=== PATIENT | female | born 1935 | race Caucasian/White ===

== ENCOUNTER 2017-09-03 10:55 | Inpatient (IN) | payer MEDICARE, MEDICAID ==
[~2017-09-03] VITALS: Ht 165.1 cm; Wt 63.1 kg
[~2017-09-03 10:55] MED LIST: ALEN70TA55 OR; ASPI81CH43 GT; GABA-497 OR; INSLANTI SC; LEVO125T6 PO; LISI10TA6 PO; METF-370 OR; NIAC500T6 OR; OMEPRAZOLE; OXYC7.5T88 OR; OYST500T29 OR; TIZA4TAB3 OR
[2017-09-03 11:57] LABS: Basophils # (auto) 0.1 uL; Eosinophils # (auto) 0.1 uL; Eosinophils % (auto) 2.8 % (0.0-7.0); Hematocrit 48.4 % (36.0-46.0); Hemoglobin 16.6 g/dL (12.2-16.2); Lymphocytes # (auto) 1.5 uL; Lymphocytes % (auto) 28.8 % (10.0-50.0); Mean Corpuscular Hemoglobin 30.9 pg (28.0-32.0); Mean Corpuscular Hgb Conc. 34.2 g/dL (32.0-36.0); Mean Corpuscular Volume 90.2 fL (80.0-100.0); Monocytes # (auto) 0.4 uL; Monocytes % (auto) 6.6 % (0.0-12.0); Neutrophils # (auto) 3.2 uL; Neutrophils % (auto) 59.8 % (37.0-80.0); Nucleated Red Blood Cells % 0.2 %; Platelet Count (auto) 153 10^3/uL (140-450); Red Blood Cells 5.37 10^6/uL (4.0-5.20); Red Cell Distribution Width 15.1 % (11.8-14.3); White Blood Cell 5.3 10^3/uL (4.4-10.8)
[2017-09-03] MEDS ORDERED: NYSTATIN TOPICAL POWDER 15GM TOP ONE (12:00)
[2017-09-03] MEDS ORDERED: CLOTRIMAZOLE 1 % CREAM 15GM TOP ONE (12:00)
[2017-09-03] MEDS ORDERED: SODIUM CHLORIDE 0.9% 1,000 ML IVB ONE (12:02)
[2017-09-03 12:25] LABS: Urine Bacteria MANY /hpf (None Seen); Urine Blood 2+ /uL (Negative); Urine Specific Gravity 1.015 (1.001-1.035); Urine WBC 1668 /hpf (0 - 5); Urine WBC Clumps PRESENT /hpf (None Seen)
[2017-09-03 12:32] LABS: Alanine Aminotransferase 13 U/L (13-56); Albumin 3.4 g/dL (3.4-5.0); Alkaline Phosphatase 99 U/L (45-117); Anion Gap 10 (5-15); Aspartate Aminotransferase 13 U/L (15-37); BUN/Creatinine Ratio 19.4; Bilirubin, Total 1.1 mg/dL (0.2-1.0); Blood Urea Nitrogen 26 mg/dL (7-18); Carbon Dioxide 26 mmol/L (21-32); Chloride 97 mmol/L (98-107); GFR African American 49 mL/min; GFR Non-African American 40 mL/min; Glucose 338 mg/dL (74-106); Potassium 3.9 mmol/L (3.5-5.1); Sodium 133 mmol/L (136-145); Total Protein 7.3 g/dL (6.4-8.2)
[2017-09-03] MEDS ORDERED: cefTRIAXone 1GM/50ML D5W 50 ML IV ONE ×2 (14:15→15:30)
[2017-09-03 15:00] LABS: Magnesium 1.9 mg/dL (1.6-2.6)
[2017-09-03] MEDS ORDERED: metroNIDAZOLE 500MG/100ML 100 ML IV ONE (15:15)
[2017-09-03] MEDS ORDERED: TEMAZEPAM 15 MG CAP PO PRN (15:30)
[2017-09-03] MEDS ORDERED: PROMETHAZINE HCL 25 MG/ML 1ML IV PRN (15:30)
[2017-09-03] MEDS ORDERED: LEVOTHYROXINE SODIUM 100 MCG/5 ML INJ IV ONE (15:30)
[2017-09-03] MEDS ORDERED: NITROGLYCERIN 0.4 MG SL TAB SL PRN (15:30)
[2017-09-03] MEDS ORDERED: LORazepam 0.5 MG TAB PO PRN (15:30)
[2017-09-03] MEDS ORDERED: DEXTROSE (50%) 50ML SYRG IV PRN ×2 (15:30→16:15)
[2017-09-03] MEDS ORDERED: ACETAMINOPHEN 500 MG TAB PO PRN (15:30)
[2017-09-03] MEDS ORDERED: LACTULOSE 20Gm/30ML SOLN PO PRN (15:30)
[2017-09-03] MEDS ORDERED: HYDROcodone-ACET 5/325MG TAB PO PRN (15:30)
[2017-09-03] MEDS: INSULIN DETEMIR(LEVEMIR) 1unit/0.01ml Soln (100units/ml) SC ONE ×2 (16:24→16:34)
[2017-09-03] MEDS: SODIUM CHLORIDE 0.9% 1,000 ML IV SCH ×2 (16:24→16:34)
[2017-09-03] MEDS: ENOXAPARIN SOD 40 MG/0.4 ML SYRINGE SC ONE ×2 (16:29→16:34)
[2017-09-03] MEDS ORDERED: LEVOTHYROXINE SODIUM 50 MCG TAB PO ONE (16:45)
[2017-09-03] MEDS ORDERED: InsuLIN REG 1unit/0.01ml Soln (100units/ml) SC SCH (17:00)
[2017-09-03] MEDS ORDERED: ACCU-CHEK COMFORT CURVE STRIP VI SCH (17:00)
[2017-09-03] MEDS: ACCU-CHEK COMFORT CURVE STRIP VI SCH ×2 (20:31→23:59)
[2017-09-03] MEDS: InsuLIN REG 1unit/0.01ml Soln (100units/ml) SC SCH ×2 (20:32→23:59)
[2017-09-03 22:00] VITALS: BP 96/63
[2017-09-03] MEDS: GABAPENTIN 300 MG CAP PO SCH (22:00)
[2017-09-03] MEDS: NYSTATIN TOPICAL POWDER 15GM TOP SCH (22:25)
[2017-09-03] MEDS: INSULIN DETEMIR(LEVEMIR) 1unit/0.01ml Soln (100units/ml) SC SCH (22:25)
[2017-09-03] MEDS: Niacin SR 500mg TAB PO SCH (22:25)
[2017-09-04] MEDS: SODIUM CHLORIDE 0.9% 1,000 ML IV SCH ×2 (04:08→17:25)
[2017-09-04] MEDS: HYDROmorphone HCL 2 MG/ML VL IV PRN (04:09)
[2017-09-04] MEDS: ACCU-CHEK COMFORT CURVE STRIP VI SCH ×4 (04:29→17:25)
[2017-09-04] MEDS: InsuLIN REG 1unit/0.01ml Soln (100units/ml) SC SCH ×5 (04:29→17:26)
[2017-09-04 05:08] VITALS: BP 95/38
[2017-09-04] MEDS: GABAPENTIN 300 MG CAP PO SCH ×3 (06:00→22:00)
[2017-09-04] MEDS: LEVOTHYROXINE SODIUM 50 MCG TAB PO SCH (06:24)
[2017-09-04] MEDS: ASPirin 81 mg TAB PO SCH (06:24)
[2017-09-04 07:30] LABS: Albumin 3.1 g/dL (3.4-5.0); Calcium 9.1 mg/dL (8.5-10.1); Potassium 3.4 mmol/L (3.5-5.1)
[2017-09-04 07:32] LABS: BUN/Creatinine Ratio 17.9
[2017-09-04 07:35] LABS: Bilirubin, Total 0.7 mg/dL (0.2-1.0); Total Protein 6.3 g/dL (6.4-8.2)
[2017-09-04 08:00] VITALS: BP 92/43
[2017-09-04 08:30] VITALS: BP 92/43
[2017-09-04] MEDS: cefTRIAXone 1GM/50ML D5W 50 ML IV SCH (09:02)
[2017-09-04] MEDS: NYSTATIN TOPICAL POWDER 15GM TOP SCH ×2 (10:00→22:00)
[2017-09-04] MEDS: INSULIN DETEMIR(LEVEMIR) 1unit/0.01ml Soln (100units/ml) SC SCH ×2 (10:00→22:00)
[2017-09-04] MEDS ORDERED: OMEPRAZOLE 20MG/10ML ORAL SUSP PO SCH ×2 (10:00)
[2017-09-04] MEDS: ENOXAPARIN SOD 40 MG/0.4 ML SYRINGE SC SCH (10:00)
[2017-09-04 12:30] VITALS: BP 114/44
[2017-09-04] MEDS ORDERED: DEXTROSE (50%) 50ML SYRG IV PRN (12:30)
[2017-09-04 17:35] VITALS: BP 102/44
[2017-09-04 21:47] VITALS: BP 143/69
[2017-09-04] MEDS: Niacin SR 500mg TAB PO SCH (22:00)
[2017-09-05] VITALS (8 sets, daily range): BP systolic 97–165; BP diastolic 44–97
[2017-09-05] MEDS: SODIUM CHLORIDE 0.9% 1,000 ML IV SCH ×2 (05:00→16:43)
[2017-09-05] MEDS: GABAPENTIN 300 MG CAP PO SCH ×3 (06:00→21:54)
[2017-09-05] MEDS: ASPirin 81 mg TAB PO SCH (06:31)
[2017-09-05] MEDS: LEVOTHYROXINE SODIUM 50 MCG TAB PO SCH (06:31)
[2017-09-05] MEDS: HYDROmorphone HCL 2 MG/ML VL IV PRN ×2 (06:32→21:44)
[2017-09-05] MEDS: ACCU-CHEK COMFORT CURVE STRIP VI SCH ×2 (06:42→16:42)
[2017-09-05] MEDS: InsuLIN REG 1unit/0.01ml Soln (100units/ml) SC SCH ×2 (06:42→16:42)
[2017-09-05 06:55] LABS: Basophils # (auto) 0.1 uL; Basophils % (auto) 1.1 % (0.0-2.0); Eosinophils # (auto) 0.2 uL; Eosinophils % (auto) 2.8 % (0.0-7.0); Hematocrit 48.1 % (36.0-46.0); Hemoglobin 16.1 g/dL (12.2-16.2); Lymphocytes % (auto) 34.8 % (10.0-50.0); Mean Corpuscular Hemoglobin 30.3 pg (28.0-32.0); Mean Corpuscular Hgb Conc. 33.4 g/dL (32.0-36.0); Mean Corpuscular Volume 90.6 fL (80.0-100.0); Monocytes # (auto) 0.5 uL; Monocytes % (auto) 8.1 % (0.0-12.0); Neutrophils % (auto) 53.2 % (37.0-80.0); Nucleated Red Blood Cells % 0.2 %; Platelet Count (auto) 139 10^3/uL (140-450); Red Blood Cells 5.31 10^6/uL (4.0-5.20); White Blood Cell 5.7 10^3/uL (4.4-10.8)
[2017-09-05 07:14] LABS: BUN/Creatinine Ratio 11.3; Calcium 9.4 mg/dL (8.5-10.1); Potassium 3.9 mmol/L (3.5-5.1)
[2017-09-05] MEDS: cefTRIAXone 1GM/50ML D5W 50 ML IV SCH (08:27)
[2017-09-05] MEDS: INSULIN DETEMIR(LEVEMIR) 1unit/0.01ml Soln (100units/ml) SC SCH ×2 (10:00→21:54)
[2017-09-05] MEDS: NYSTATIN TOPICAL POWDER 15GM TOP SCH ×2 (10:00→21:54)
[2017-09-05] MEDS: ENOXAPARIN SOD 40 MG/0.4 ML SYRINGE SC SCH (10:00)
[2017-09-05] MEDS ORDERED: diphenhdrAMINE HCL 50 MG/1 ML VL IM ONE (10:15)
[2017-09-05] MEDS ORDERED: PANTOPRAZOLE 40 MG TAB PO ONE (15:00)
[2017-09-05] MEDS: Niacin SR 500mg TAB PO SCH (21:54)
[2017-09-06 05:00] VITALS: BP 122/59
[2017-09-06] MEDS: SODIUM CHLORIDE 0.9% 1,000 ML IV SCH (06:00)
[2017-09-06] MEDS: GABAPENTIN 300 MG CAP PO SCH ×2 (06:00→13:30)
[2017-09-06] MEDS: ASPirin 81 mg TAB PO SCH (06:14)
[2017-09-06] MEDS: ACCU-CHEK COMFORT CURVE STRIP VI SCH (06:15)
[2017-09-06] MEDS: InsuLIN REG 1unit/0.01ml Soln (100units/ml) SC SCH (06:15)
[2017-09-06] MEDS: LEVOTHYROXINE SODIUM 50 MCG TAB PO SCH ×2 (06:15→10:18)
[2017-09-06 08:00] VITALS: BP 130/77
[2017-09-06] MEDS: cefTRIAXone 1GM/50ML D5W 50 ML IV SCH (09:00)
[2017-09-06] MEDS: INSULIN DETEMIR(LEVEMIR) 1unit/0.01ml Soln (100units/ml) SC SCH (10:00)
[2017-09-06] MEDS: ENOXAPARIN SOD 40 MG/0.4 ML SYRINGE SC SCH (10:00)
[2017-09-06] MEDS ORDERED: PANTOPRAZOLE 40 MG TAB PO SCH (10:00)
[2017-09-06] MEDS: NYSTATIN TOPICAL POWDER 15GM TOP SCH (10:00)
[2017-09-06 17:12] VITALS: BP 129/75
== END 2017-09-06 17:55 | disposition home health service (06) | DRG 689 ==
LOC: EDBD 10:55 → ER 10:55 → TELE 10:56 → TELE-WESTW 18:16 → WEST WING 09-06 12:59
PROVIDERS: ADMIT Internal Medicine; ATTEND Internal Medicine
DX: N39.0 Urinary tract infection, site not specified (principal); N17.0 Acute kidney failure with tubular necrosis; I13.0 Hypertensive heart and chronic kidney disease with heart failure and stage 1 through stage 4 chronic kidney disease, or unspecified chronic kidney disease; E11.21 Type 2 diabetes mellitus with diabetic nephropathy; E11.65 Type 2 diabetes mellitus with hyperglycemia; F41.9 Anxiety disorder, unspecified; I25.10 Atherosclerotic heart disease of native coronary artery without angina pectoris; N18.3 Chronic kidney disease, stage 3 (moderate); I25.2 Old myocardial infarction; I48.91 Unspecified atrial fibrillation; I50.9 Heart failure, unspecified; I70.8 Atherosclerosis of other arteries; K52.9 Noninfective gastroenteritis and colitis, unspecified; N28.1 Cyst of kidney, acquired; Z95.810 Presence of automatic (implantable) cardiac defibrillator; F32.9 Major depressive disorder, single episode, unspecified; Z90.49 Acquired absence of other specified parts of digestive tract; E66.01 Morbid (severe) obesity due to excess calories; Z68.23 Body mass index [BMI] 23.0-23.9, adult; Z90.710 Acquired absence of both cervix and uterus; Z95.5 Presence of coronary angioplasty implant and graft
CPT/HCPCS: 36415; 51702; 71010; 74176; 80048; 80053; 81001; 82962; 83036; 83605; 83690; 83735; 84443; 84484; 85025; 85652; 87086; 87088; 87186; 87493; 93005; 94761; 96361; 96365; 96367; 96375; 97110; 97116; 97163; 97530; J0696; J1815; J3490

== ENCOUNTER 2017-11-07 19:16 | Emergency (ER) | payer MEDICARE, MEDICAID ==
[~2017-11-07] VITALS: Ht 165.1 cm; Wt 81.6 kg
[~2017-11-07 19:16] MED LIST changes: -GABA-497 OR; +GABA300C10 OR; -LEVO125T6 PO; +LEVO125T7 PO
[2017-11-07 19:52] VITALS: BP 145/69
[2017-11-07 21:11] LABS: Basophils # (auto) 0.1 uL; Basophils % (auto) 1.1 % (0.0-2.0); Eosinophils # (auto) 0.2 uL; Eosinophils % (auto) 3.3 % (0.0-7.0); Hematocrit 38.4 % (36.0-46.0); Hemoglobin 12.9 g/dL (12.2-16.2); Lymphocytes # (auto) 1.9 uL; Lymphocytes % (auto) 30.4 % (10.0-50.0); Mean Corpuscular Hemoglobin 31.3 pg (28.0-32.0); Mean Corpuscular Hgb Conc. 33.5 g/dL (32.0-36.0); Mean Corpuscular Volume 93.4 fL (80.0-100.0); Monocytes # (auto) 0.5 uL; Monocytes % (auto) 8.8 % (0.0-12.0); Neutrophils # (auto) 3.5 uL; Neutrophils % (auto) 56.4 % (37.0-80.0); Platelet Count (auto) 166 10^3/uL (140-450); Red Blood Cells 4.11 10^6/uL (4.0-5.20); Red Cell Distribution Width 15.2 % (11.8-14.3); White Blood Cell 6.2 10^3/uL (4.4-10.8)
[2017-11-07 21:22] LABS: INR 1.01 (0.9-1.15); Partial Thromboplastin Time 27.9 sec (22.64-33.71)
[2017-11-07 21:25] LABS: Alanine Aminotransferase 15 U/L (13-56); Albumin 4.1 g/dL (3.4-5.0); Anion Gap 5 (5-15); Aspartate Aminotransferase 14 U/L (15-37); BUN/Creatinine Ratio 16.8; Blood Urea Nitrogen 22 mg/dL (7-18); Carbon Dioxide 29 mmol/L (21-32); Chloride 102 mmol/L (98-107); GFR African American 50 mL/min; GFR Non-African American 41 mL/min; Glucose 330 mg/dL (74-106); Potassium 4.2 mmol/L (3.5-5.1); Sodium 136 mmol/L (136-145)
[2017-11-07 21:30] LABS: Alkaline Phosphatase 88 U/L (45-117); Bilirubin, Total 1.4 mg/dL (0.2-1.0); Total Protein 7.7 g/dL (6.4-8.2)
== END 2017-11-07 23:21 | disposition left against medical advice (07) ==
LOC: ER 19:16
DX: M79.89 Other specified soft tissue disorders (principal); Z53.21 Procedure and treatment not carried out due to patient leaving prior to being seen by health care provider
CPT/HCPCS: 36415; 80053; 82962; 83880; 84484; 85025; 85610; 85730; 93970

== ENCOUNTER 2017-12-26 08:45 | Emergency (ER) | payer MEDICARE, MEDICAID ==
[~2017-12-26] VITALS: Ht 167.6 cm; Wt 108.9 kg
[2017-12-26] MEDS ORDERED: LORazepam 0.5 MG TAB PO ONE ×2 (09:15→17:15)
[2017-12-26 09:47] LABS: Basophils # (auto) 0.1 uL; Basophils % (auto) 1.1 % (0.0-2.0); Eosinophils # (auto) 0.2 uL; Eosinophils % (auto) 4.1 % (0.0-7.0); Hematocrit 43.8 % (36.0-46.0); Hemoglobin 14.6 g/dL (12.2-16.2); Lymphocytes # (auto) 1.5 uL; Lymphocytes % (auto) 33.9 % (10.0-50.0); Mean Corpuscular Hemoglobin 31.2 pg (28.0-32.0); Mean Corpuscular Hgb Conc. 33.4 g/dL (32.0-36.0); Mean Corpuscular Volume 93.3 fL (80.0-100.0); Monocytes # (auto) 0.3 uL; Monocytes % (auto) 6.1 % (0.0-12.0); Neutrophils # (auto) 2.5 uL; Neutrophils % (auto) 54.8 % (37.0-80.0); Nucleated Red Blood Cells % 0.1 %; Platelet Count (auto) 133 10^3/uL (140-450); Red Blood Cells 4.69 10^6/uL (4.0-5.20); Red Cell Distribution Width 14.3 % (11.8-14.3); White Blood Cell 4.5 10^3/uL (4.4-10.8)
[2017-12-26 09:58] LABS: Anion Gap 7 (5-15); BUN/Creatinine Ratio 13.1; Blood Alcohol < 3.0 mg/dL (0-5); Blood Urea Nitrogen 18 mg/dL (7-18); Calcium 9.1 mg/dL (8.5-10.1); Carbon Dioxide 28 mmol/L (21-32); Chloride 101 mmol/L (98-107); GFR African American 47 mL/min; GFR Non-African American 39 mL/min; Glucose 294 mg/dL (74-106); Potassium 3.8 mmol/L (3.5-5.1); Sodium 136 mmol/L (136-145)
[2017-12-26 10:39] LABS: Amphetamine Screen, Urine NEGATIVE (NEGATIVE); Barbiturate Scree,Urine NEGATIVE (NEGATIVE); Benzodiazephine Screen, Urine NEGATIVE (NEGATIVE); Cannabinoid Screen, Urine NEGATIVE (NEGATIVE); Cocaine Screen, Urine NEGATIVE (NEGATIVE); Opiate Scree,Urine NEGATIVE (NEGATIVE); Phencyclidine Screen, Urine NEGATIVE (NEGATIVE)
[2017-12-26] MEDS ORDERED: InsuLIN REG 1unit/0.01ml Soln (100units/ml) IV ONE (11:15)
[2017-12-26] MEDS: OLANZapine 5 MG TAB PO ONE ×2 (21:11→21:15)
[2017-12-27] MEDS ORDERED: InsuLIN REG 1unit/0.01ml Soln (100units/ml) SC ONE ×3 (10:00→16:00)
[2017-12-27] MEDS ORDERED: InsuLIN REG 1unit/0.01ml Soln (100units/ml) ONE (10:18)
[2017-12-28 12:34] VITALS: BP 128/76
== END 2017-12-28 11:56 | disposition short-term general hospital (02) ==
LOC: ER 08:45 → EDUNIT# 08:45 → EDBD 08:45 → ER 12-28 11:56
DX: I50.9 Heart failure, unspecified (principal); I11.0 Hypertensive heart disease with heart failure; J44.9 Chronic obstructive pulmonary disease, unspecified; E11.9 Type 2 diabetes mellitus without complications; I25.10 Atherosclerotic heart disease of native coronary artery without angina pectoris; I48.91 Unspecified atrial fibrillation; F32.9 Major depressive disorder, single episode, unspecified; I25.2 Old myocardial infarction; Z90.49 Acquired absence of other specified parts of digestive tract; Z86.73 Personal history of transient ischemic attack (TIA), and cerebral infarction without residual deficits; Z90.710 Acquired absence of both cervix and uterus
CPT/HCPCS: 36415; 80048; 80307; 80320; 82962; 85025; 93005; 96372; 96374; 99285; J1815

== ENCOUNTER 2020-04-27 02:43 | Inpatient (IN) | payer MEDICARE, MEDICAID ==
[~2020-04-27] VITALS: Ht 162.6 cm; Wt 98.0 kg
[~2020-04-27 02:43] MED LIST changes: +ALEN1TAB32 OR; -ALEN70TA55 OR; +LISI-648 PO; -LISI10TA6 PO; -NIAC500T6 OR; +[UNRECOGNIZED DRUG - CODE] OR
[2020-04-27] MEDS ORDERED: FLUCONAZOLE 100 MG TAB PO ONE ×2 (05:45)
[2020-04-27 06:14] LABS: Urine Bacteria MOD /hpf (None Seen); Urine Blood Negative /uL (Negative); Urine Specific Gravity 1.009 (1.001-1.035); Urine WBC 1 /hpf (0 - 5)
[2020-04-27 06:19] LABS: Basophils # (auto) 0 10 ^3/uL (0-0.2); Basophils % (auto) 0.9 % (0.0-2.0); Eosinophils # (auto) 0.1 10 ^3/uL (0-0.8); Eosinophils % (auto) 2.2 % (0.0-7.0); Hematocrit 37.6 % (36.0-46.0); Hemoglobin 12.4 g/dL (12.2-16.2); Lymphocytes % (auto) 21.7 % (10.0-50.0); Mean Corpuscular Hemoglobin 30.1 pg (28.0-32.0); Mean Corpuscular Hgb Conc. 32.9 g/dL (32.0-36.0); Mean Corpuscular Volume 91.3 fL (80.0-100.0); Monocytes # (auto) 0.4 10 ^3/uL (0-1.3); Monocytes % (auto) 9.4 % (0.0-12.0); Neutrophils % (auto) 65.8 % (37.0-80.0); Platelet Count (auto) 169 10^3/uL (140-450); Red Blood Cells 4.12 10^6/uL (4.0-5.20); Red Cell Distribution Width 15.8 % (11.8-14.3); White Blood Cell 4.6 10^3/uL (4.4-10.8)
[2020-04-27 06:34] LABS: Albumin 3.7 g/dL (3.4-5.0); Anion Gap 7 (5-15); Blood Urea Nitrogen 23 mg/dL (7-18); Calcium 9.3 mg/dL (8.5-10.1); Carbon Dioxide 27 mmol/L (21-32); Chloride 105 mmol/L (98-107); Glucose 220 mg/dL (74-106); INR 1.09 (0.9-1.15); Partial Thromboplastin Time 30.2 sec (23.64-32.05); Potassium 4.1 mmol/L (3.5-5.1); Sodium 139 mmol/L (136-145)
[2020-04-27 06:42] LABS: Alanine Aminotransferase 16 U/L (13-56); Alkaline Phosphatase 98 U/L (45-117); Aspartate Aminotransferase 18 U/L (15-37); BUN/Creatinine Ratio 21.1; Bilirubin, Total 1.6 mg/dL (0.2-1.0); GFR African American 62 mL/min; GFR Non-African American 51 mL/min; Total Protein 7.9 g/dL (6.4-8.2)
[2020-04-27] MEDS ORDERED: TEMAZEPAM 15 MG CAP PO PRN (09:30)
[2020-04-27] MEDS ORDERED: NITROGLYCERIN 0.4 MG SL TAB SL PRN (09:30)
[2020-04-27] MEDS ORDERED: DEXTROSE (50%) 50ML SYRG IV PRN (09:30)
[2020-04-27] MEDS ORDERED: LACTULOSE 20Gm/30ML SOLN PO PRN (09:30)
[2020-04-27] MEDS ORDERED: ONDANSETRON HCL 4 MG/2 ML VIAL IV PRN (09:30)
[2020-04-27] MEDS ORDERED: traMADol HCL 50 MG TAB PO PRN (09:30)
[2020-04-27] MEDS: INSULIN LANTUS (GLARGINE) 1 /0.01ml (100units/ml) SC SCH (10:00)
[2020-04-27] MEDS ORDERED: ENOXAPARIN SOD 40 MG/0.4 ML SYRINGE SC SCH (10:00)
[2020-04-27] MEDS: NITROGLYCERIN 0.2MG/HR TOPICAL PATCH TD SCH (10:00)
--- NOTE | 2020-04-27 11:13 | NUR ---
Telemetry admit from ER ELIZABETH SILVA admitted to Telemetry unit. Patient oriented to Saundra Bowling, primary RN, unit, room, bed, and unit policies regarding patient care and visiting hours. Patient now on continuous telemetry monitoring, tele box #16 and telemetry reading on arrival to unit is paced @ 73 BPM. Bed set to lowest position/locked, bedside rails up x2, call light within reach, bed alarm on. Instructed patient to call for assistance. Patient verbalized understanding. Will continue to monitor q1hr and prn.
[2020-04-27] MEDS: ACCU-CHEK COMFORT CURVE STRIP VI SCH ×3 (11:30→22:19)
[2020-04-27] MEDS: InsuLIN REG 1unit/0.01ml Soln (100units/ml) SC SCH ×3 (11:30→22:00)
--- NOTE | 2020-04-27 11:30 | NUR ---
LAB PATIENT REFUSED LAB DRAW. WILL INFORM
[2020-04-27] MEDS: ASPirin 81 mg TAB PO SCH (12:04)
[2020-04-27] MEDS: POTASSIUM CHL 20 Meq TABLET PO SCH (12:05)
[2020-04-27] MEDS: PANTOPRAZOLE 40 MG TAB PO SCH (12:08)
[2020-04-27] MEDS: CARVEDILOL 3.125 MG TAB PO SCH ×2 (12:09→22:00)
[2020-04-27] MEDS: FUROSEMIDE 40 MG/4 ML VIAL IV SCH (12:09)
[2020-04-27] MEDS: ENOXAPARIN SOD 40 MG/0.4 ML SYRINGE SC SCH (12:10)
[2020-04-27 13:00] VITALS: BP 140/67
[2020-04-27] MEDS: TIZANIDINE HYDROCHLORIDE 4 MG PO SCH ×2 (14:00→22:00)
[2020-04-27] MEDS: CLINDAMYCIN 600MG IV 50 ML IV SCH ×2 (14:00→22:00)
[2020-04-27] MEDS: SODIUM CHLOR 0.9% PF (SALINE LOCK) 10ML VIAL/SYR IV SCH ×2 (14:00→22:00)
--- NOTE | 2020-04-27 14:07 | NUR ---
IV PATIENT PULL IV OUT. PATIENT STATED " IT WAS HURTING, SO I PULLED IT OUT." THIS NURSE EDUCATED ON THE IMPORTANCE ON IV ACCESS. THIS NURSE ATTEMPTED TO PLACE NEW IV ACCESS. PATIENT REFUSED, PATIENT STATED "YOUR NOT POKING ME AGAIN." WILL INFORM MD.
[2020-04-27] MEDS: GABAPENTIN 300 MG CAP PO SCH ×2 (14:14→22:27)
--- NOTE | 2020-04-27 14:15 | NUR ---
PAGED HOSPITALIST RE: NO IV ACCESS AND PATIENT REFUSING A NEW ACCESS. AWAITING CALL BACK.
--- NOTE | 2020-04-27 14:30 | NUR ---
SPOKE TO HOSPITALIST MADE HIM AWARE OF CURRENT SITUATION. NO NEW ORDERS RECEIVED. WILL CONTINUE TO MONITOR.
--- NOTE | 2020-04-27 16:14 | NUR ---
SOCIAL SERVICE CONSULT JEWELRY APPRAISER SPOKE WITH PT PER SS CONSULT TO ASSESS LIVING SITUATION. PT IS A 84 YR OLD FEMALE ADMITTED FOR ALOC, HRT FAILURE. SHE HAS AN EXTENSIVE MEDICAL HX INCLUDING CERVICAL CA, DEPRESSION, TIA, HTN, DM, COPD, PACEMAKER. PT WAS A/A/OX4, RECEPTIVE TO SS VISIT, EUTHYMIC MOOD WITH CONGRUENT AFFECT. PT HAS A HX OF DEPRESSION WITH PRIOR SUICIDE ATTEMPTS (LAST IN 2018) BUT SHE DENIES ANY CURRENT SI/HI, DENIES BEING DEPRESSED, NOT CONNECTED WITH MENTAL HEALTH SERVICES. PT STATES SHE WAS PREVIOUSLY FRUSTRATED ABOUT HER MANY MEDICAL ISSUES WHICH LED TO HER SUICIDAL IDEATIONS. PT NOW SEEMS TO BE COPING WELL. PT USES A MOTORIZED WHEELCHAIR. HER FRIEND NENA [phone] IS STORING THE SCOOTER WHILE PT IS HOSPITALIZED. PT WAS BIBA AFTER BEING FOUND AT 2 AM AT [address] [employer] IN [place]. PT STATES HER SCOOTER "" AND SHE WAS UNABLE TO GET A HOLD OF ANYONE BY PHONE. PT LIVES ALONE. SHE HAS HER SCOOTER, A SHOWER CHAIR, AND A WALKER. PT'S PCP IS DR. VALDES. HER DAUGHTER SANDY AMARAL [phone] HAS PT'S AH AND IS HER EMERGENCY DECISION MAKER. PT HAS HAD SEVERAL IHSS WORKERS BUT FIRED THEM RECENTLY. SHE HAS A CAREGIVER WHO WAS SUPPOSED TO START THIS WEEK BUT THAT WORKER (SCOT) IS NOW HOSPITALIZED WELL. PT HAS BEEN WITHOUT A CAREGIVER FOR ABOUT A WEEK. SHE NEEDS ASSISTANCE WITH ADL'S AND IS NOT SELF SUFFICIENT, NENA REPORTS THAT PT HAS HAD SIMILAR INCIDENTS TO THE ONE LAST NIGHT ON SEVERAL OCCASIONS. PT IS CONNECTED WITH LISA [phone] WHO IS ASSISTING PT WITH FINDING A NEW CAREGIVER. JEWELRY APPRAISER LEFT V/M FOT PT'S DAUGHTER TO DISCUSS DC PLANNING. DAUGHTER IS SUPPORTIVE. PT AGREES TO SNF PLACEMENT, SHE WAS RECENTLY DC FROM [facility] AFTER BEING THERE FOR 2 MONTHS. JEWELRY APPRAISER PROVIDED SUPPORTIVE COUNSELING AND ENCOURAGED PT TO STAY AT SNF UNTIL SHE FINDS A NEW CAREGIVER AND NEW RESIDENCE PT DOES NOT LIKE HER CURRENT APARTMENT. PT GETS $1100 IN [facility] WHICH SHE SAYS BARELY COVERS HER RENT. PT IS ALREADY ON SECTION 8 WAITLIST. JEWELRY APPRAISER UPDATED BEDSIDE RN, BENITO TO REMAIN AVAILABLE NEEDED.
[2020-04-27 16:56] VITALS: BP 113/50
--- NOTE | 2020-04-27 18:21 | NUR ---
MD PER DR. MARADIAGA PATIENT IS CLEARED FOR DISCHARGE FROM CARDIOLOGY STANDPOINT.
--- NOTE | 2020-04-27 18:59 | NUR ---
PICTURE ADMISSION PICTURES TAKEN.
--- NOTE | 2020-04-27 19:20 | NUR ---
Opening Shift Note Assumed care of patient. Patient resting with eyes closed in bed. No S/S of distress/SOB or pain. Bed locked in lowest position, HOB at 30 degrees, side rails up x2, and call light within reach. Instructed on POC and to call for assist PRN, will continue to monitor for changes Q1hr and PRN .
[2020-04-27 20:00] VITALS: BP 101/44
[2020-04-27 21:55] VITALS: BP 103/50
--- NOTE | 2020-04-27 22:00 | NUR ---
Patient complains of left back pain upon moving in bed, also pain in knee. Pain medication given as prescribed and readjusted w/ pillows. Will continue to monitor.
[2020-04-27] MEDS: ATORVASTATIN 20 MG TAB PO SCH (22:27)
[2020-04-28 04:57] VITALS: BP 107/63
[2020-04-28] MEDS: CLINDAMYCIN 600MG IV 50 ML IV SCH ×3 (06:00→21:52)
[2020-04-28] MEDS: SODIUM CHLOR 0.9% PF (SALINE LOCK) 10ML VIAL/SYR IV SCH ×3 (06:00→21:53)
[2020-04-28] MEDS: TIZANIDINE HYDROCHLORIDE 4 MG PO SCH ×3 (06:00→22:00)
[2020-04-28] MEDS: GABAPENTIN 300 MG CAP PO SCH ×3 (06:28→23:24)
[2020-04-28] MEDS: LEVOTHYROXINE SODIUM 100 MCG TAB PO SCH (06:31)
[2020-04-28] MEDS: LEVOTHYROXINE SODIUM 25 MCG TAB PO SCH (06:31)
[2020-04-28] MEDS: InsuLIN REG 1unit/0.01ml Soln (100units/ml) SC SCH ×4 (06:37→23:25)
[2020-04-28] MEDS: ACCU-CHEK COMFORT CURVE STRIP VI SCH ×4 (06:38→23:25)
--- NOTE | 2020-04-28 07:05 | NUR ---
OPENING NOTE Assumed responsibility of patient at 0700. Patient resting comfortably in bed. No signs of respiratory distress at this time. No complaints of pain at this time. Bed locked in lowest position, side rails up x 3, call light within reach and HOB elevated at least 30 degrees. Will continue to monitor.
[2020-04-28] MEDS: ACETAMINOPHEN 500 MG TAB PO PRN (07:07)
[2020-04-28 08:00] VITALS: BP 105/56
[2020-04-28 08:45] VITALS: BP 105/56
[2020-04-28] MEDS: cefTRIAXone 1GM/50ML D5W 50 ML IV SCH (09:00)
[2020-04-28] MEDS: FUROSEMIDE 40 MG/4 ML VIAL IV SCH (10:00)
[2020-04-28] MEDS: PANTOPRAZOLE 40 MG TAB PO SCH (10:00)
[2020-04-28] MEDS: ENOXAPARIN SOD 40 MG/0.4 ML SYRINGE SC SCH (10:00)
[2020-04-28] MEDS: POTASSIUM CHL 20 Meq TABLET PO SCH (10:00)
[2020-04-28] MEDS: INSULIN LANTUS (GLARGINE) 1 /0.01ml (100units/ml) SC SCH (10:00)
[2020-04-28 10:33] LABS: Alcohol, Urine < 3.0 mg/dL (0-10); Amphetamine Screen, Urine NEGATIVE (NEGATIVE); Barbiturate Scree,Urine NEGATIVE (NEGATIVE); Benzodiazephine Screen, Urine NEGATIVE (NEGATIVE); Cannabinoid Screen, Urine NEGATIVE (NEGATIVE); Cocaine Screen, Urine NEGATIVE (NEGATIVE); Opiate Scree,Urine NEGATIVE (NEGATIVE); Phencyclidine Screen, Urine NEGATIVE (NEGATIVE)
[2020-04-28] MEDS: CARVEDILOL 3.125 MG TAB PO SCH ×2 (10:53→23:22)
[2020-04-28] MEDS: ASPirin 81 mg TAB PO SCH (10:53)
[2020-04-28] MEDS: NITROGLYCERIN 0.2MG/HR TOPICAL PATCH TD SCH (10:54)
--- NOTE | 2020-04-28 11:00 | NUR ---
APPLIED PHYTOPLEX TO ABDOMINAL FOLDS
--- NOTE | 2020-04-28 11:12 | NUR ---
SPOKE WITH DR. URIAS. HE IS OKAY WITH THE PATIENT GOING HOME WITH THE DRAIN. HE WANTS HER TO FOLLOW UP WITH HIM IN A WEEK.
--- NOTE | 2020-04-28 11:15 | NUR ---
WOUND CARE NOTE: IN TO SEE PATIENT AT THIS TIME PER WOUND CARE CONSULT REQUEST. WOUND PHOTOS TAKEN UPON ADMIT, BY BEDSIDE NURSE FOR REFERENCE. PATIENT ADMITTED TO [facility] WITH DIAGNOSIS OF HEART FAILURE, ALOC. CURRENT ARELIS SCORE IS 14. PATIENT ABLE TO SELF TURN/REPOSITION SELF. PATIENT IS OBSERVED TO HAVE MULTIPLE SCABBED ABRASIONS/SKIN TEARS TO BUE/BLE. NO OPEN OR DRAINING AREAS NOTED. LEFT ALL OPEN TO AIR. PATIENT HAS MILD INTERTRIGINOUS RASH NOTED TO ABDOMINAL/GROIN SKIN FOLD AREAS. SKIN IS LIGHT RED, INTACT. APPLIED ANTIFUNGAL CLEAR TO SKIN. NO OTHER SKIN INTEGRITY ISSUES NOTED. RECOMMEND: BID/PRN APPLICATION WITH ANTIFUNGAL CLEAR TO INTERTRIGO OF ABDOMINAL/GROIN SKIN FOLD AREAS, SKIN/WOUND CARE PLAN. NO FURTHER WOUND CARE MONITORING NEEDED.
[2020-04-28 11:44] LABS: Basophils # (auto) 0.1 10 ^3/uL (0-0.2); Basophils % (auto) 1.4 % (0.0-2.0); Eosinophils # (auto) 0.3 10 ^3/uL (0-0.8); Eosinophils % (auto) 5.7 % (0.0-7.0); Hematocrit 37.1 % (36.0-46.0); Hemoglobin 12.2 g/dL (12.2-16.2); Lymphocytes # (auto) 1.1 10 ^3/uL (0.4-5.4); Lymphocytes % (auto) 24.4 % (10.0-50.0); Mean Corpuscular Hemoglobin 30.1 pg (28.0-32.0); Mean Corpuscular Hgb Conc. 32.9 g/dL (32.0-36.0); Mean Corpuscular Volume 91.6 fL (80.0-100.0); Monocytes # (auto) 0.5 10 ^3/uL (0-1.3); Monocytes % (auto) 10.9 % (0.0-12.0); Neutrophils # (auto) 2.5 10 ^3/uL (1.6-8.6); Neutrophils % (auto) 57.6 % (37.0-80.0); Nucleated Red Blood Cells % 0.1 %; Platelet Count (auto) 170 10^3/uL (140-450); Red Blood Cells 4.05 10^6/uL (4.0-5.20); Red Cell Distribution Width 15.9 % (11.8-14.3); White Blood Cell 4.4 10^3/uL (4.4-10.8)
[2020-04-28 12:06] LABS: Albumin 3.3 g/dL (3.4-5.0); Calcium 8.6 mg/dL (8.5-10.1); Potassium 4.2 mmol/L (3.5-5.1)
[2020-04-28 12:11] LABS: BUN/Creatinine Ratio 20.2; Bilirubin, Total 1.3 mg/dL (0.2-1.0); Total Protein 7.1 g/dL (6.4-8.2)
[2020-04-28 13:00] VITALS: BP 94/51
--- NOTE | 2020-04-28 14:05 | NUR ---
SPOKE WITH [facility]SPORT[facility] TO SET UP A RIDE FOR THE PATIENT TO GET HOME. I WAS TOLD TO CALL BACK LATER TO FOLLOW UP ON A TIME OF ARRIVAL. Addendum: 04/28/20 at 1920 by Javid Wallace RN WRONG PATIENT
--- NOTE | 2020-04-28 14:15 | NUR ---
FOLLOW UP WITH [facility]SP[facility]. THERE ARE STILL NO RIDES AVAILABLE FOR THE PATIENT AT THIS TIME. I WILL CONTINUE TO FOLLOW UP. Addendum: 04/28/20 at 1920 by Javid Wallace RN WRONG PATIENT
--- NOTE | 2020-04-28 15:25 | NUR ---
NO DRIVERS TO ACCEPT THE TRIP AT THIS TIME. Addendum: 04/28/20 at 1920 by Javid Wallace RN WRONG PATIENT
--- NOTE | 2020-04-28 16:01 | NUR ---
RE-ASSESSMENT PT WAS MEDICALLY CLEARED BY MD PARKER TO RETURN HOME WITH HOME HEALTH. [employer] FAXED PACKET TO [facility] PER SS CONSULT FOR HOME HEALTH/PT. PER FLASK FITTER DENITA AT [facility], PACKET WAS RECEIVED AND PT WAS ACCEPTED BACK ON SERVICE. [employer] UPDATED BEDSIDE RN CINDY. NO OTHER SS NEEDS, SS TO REMAIN AVAILABLE NEEDED.
[2020-04-28 16:13] VITALS: BP 98/55
--- NOTE | 2020-04-28 17:35 | NUR ---
PATIENT PULLED OUT WARD. NO REPORTS OF PAIN OR DISCOMFORT BY THE PATIENT. NO SIGNS OF HEAVY BLEEDING NOTED. WILL CONTINUE TO MONITOR PATIENT.
--- NOTE | 2020-04-28 19:56 | NUR ---
DISCHARGE ENDORSED TO NOC. I INFORMED THE NURSE THAT THE PATIENT CLAIMS THAT HER RIDE IS ON HER WAY. THE DISCHARGE IS IN THE CHART READ TO BE SIGNED.
--- NOTE | 2020-04-28 21:05 | NUR ---
PT STATES THAT SHE IS UNABLE TO GET A HOLD OF HER FRIEND. I CALLED NENA , HER FRIEND AND NO ANSWER. LEFT A MESSAGE. OFFERED A TAXI VOUCHER TO PT AND PT STATES THAT SHE IS UNABLE TO WALK FROM TAXI TO HER FRONT DOOR AND THAT HER FRIEND WAS GOING TO BRING A W/C.
--- NOTE | 2020-04-28 21:20 | NUR ---
DR PARKER RETURNED PAGE AND NEW ORDERS RECEIVED TO DC PT HOME IN AM.
--- NOTE | 2020-04-28 21:27 | NUR ---
JUST SPOKE WITH PT'S DAUGHTER -SANDY AMARAL. [phone]. DAUGHTER STATES THAT HER MOTHER FIRES ALL CAREGIVERS, THAT SHE IS NOT ABLE TO WALK OR CARE FOR HERSELF. THAT SHE HAS BEEN CONFUSED. AND HAS DECISION MAKING PROBLEMS. PARANOID BEHAVIOR. SANDY FURTHER STATES THAT SHE IS UNABLE TO GIVE CARE THAT HER MOTHER NEEDS AND THAT SHE BELIEVES THAT HER MOTHER NEEDS A SNF. SOCIAL SERVICE CONSULT PLACED AND DR PARKER NOTIFIED.
[2020-04-28 22:00] VITALS: BP 110/46
[2020-04-28] MEDS: ATORVASTATIN 20 MG TAB PO SCH (23:23)
[2020-04-29 05:00] VITALS: BP 122/63
[2020-04-29] MEDS: CLINDAMYCIN 600MG IV 50 ML IV SCH ×3 (05:02→22:00)
[2020-04-29] MEDS: TIZANIDINE HYDROCHLORIDE 4 MG PO SCH ×3 (05:02→22:00)
[2020-04-29] MEDS: SODIUM CHLOR 0.9% PF (SALINE LOCK) 10ML VIAL/SYR IV SCH ×3 (05:03→22:00)
[2020-04-29] MEDS: LEVOTHYROXINE SODIUM 25 MCG TAB PO SCH (06:36)
[2020-04-29] MEDS: LEVOTHYROXINE SODIUM 100 MCG TAB PO SCH (06:36)
[2020-04-29] MEDS: ACCU-CHEK COMFORT CURVE STRIP VI SCH ×3 (06:39→17:26)
[2020-04-29] MEDS: InsuLIN REG 1unit/0.01ml Soln (100units/ml) SC SCH ×4 (06:40→22:00)
[2020-04-29] MEDS: GABAPENTIN 300 MG CAP PO SCH ×2 (06:44→17:26)
--- NOTE | 2020-04-29 07:30 | NUR ---
Opening Shift Note Assumed care of patient, awake and alert. No S/S of distress/SOB or pain. Instructed on POC and to call for assist PRN, will continue to monitor for changes Q1hr and PRN.
[2020-04-29 08:00] VITALS: BP 123/69
[2020-04-29] MEDS: cefTRIAXone 1GM/50ML D5W 50 ML IV SCH (09:00)
[2020-04-29 09:22] VITALS: BP 123/69
--- NOTE | 2020-04-29 09:28 | NUR ---
Samaria made aware that the patient will be sent to a custodial facility. the daughter is in agreement with that plan.
[2020-04-29] MEDS: NITROGLYCERIN 0.2MG/HR TOPICAL PATCH TD SCH (10:00)
[2020-04-29] MEDS: PANTOPRAZOLE 40 MG TAB PO SCH (10:00)
[2020-04-29] MEDS: POTASSIUM CHL 20 Meq TABLET PO SCH (10:00)
[2020-04-29] MEDS: FUROSEMIDE 40 MG/4 ML VIAL IV SCH (10:00)
--- NOTE | 2020-04-29 10:30 | NUR ---
paperwork faxed to [facility] to set up a room for the patient. [facility] will be on will call pending the patient's COVID19 test results.
[2020-04-29] MEDS: CARVEDILOL 3.125 MG TAB PO SCH (10:56)
[2020-04-29] MEDS: ASPirin 81 mg TAB PO SCH (10:56)
[2020-04-29] MEDS: INSULIN LANTUS (GLARGINE) 1 /0.01ml (100units/ml) SC SCH (10:59)
[2020-04-29] MEDS: ENOXAPARIN SOD 40 MG/0.4 ML SYRINGE SC SCH (11:00)
[2020-04-29 13:00] VITALS: BP 119/75
[2020-04-29 17:00] VITALS: BP 98/51
--- NOTE | 2020-04-29 19:10 | NUR ---
ester at [facility] given report on patient. Rosanna on will call once the discharge is ready.
--- NOTE | 2020-04-29 19:54 | NUR ---
discharge to SNF endorsed to mine shifter.
--- NOTE | 2020-04-29 21:45 | NUR ---
CALLED [facility] FOR TRANSPORTATION TO [facility]. NEED TO FAX PCS FORM AND IN THE MEAN TIME [facility] IS ON WILL CALL.
--- NOTE | 2020-04-29 21:45 | NUR ---
CALLED [facility] AND THEY STATED THAT THEY ARE NOT ON WILL CALL FOR THIS PT AND THEN ASKED ABOUT PT INSURANCE. THEY STATE THAT THEY DO NOT TAKE PT'S INSURANCE. THEN THEY FURTHER STATED THAT THEY NO LONGER WORK WITH [employer].
[2020-04-29 22:00] VITALS: BP 127/60
--- NOTE | 2020-04-29 22:50 | NUR ---
PCS FORM FAXED TO [facility] AND AWAITING CALL FOR ETA.
[2020-04-30] MEDS: ACCU-CHEK COMFORT CURVE STRIP VI SCH ×3 (00:08→11:56)
[2020-04-30] MEDS: ATORVASTATIN 20 MG TAB PO SCH (00:08)
[2020-04-30] MEDS: GABAPENTIN 300 MG CAP PO SCH ×2 (00:08→06:49)
[2020-04-30] MEDS: CARVEDILOL 3.125 MG TAB PO SCH ×2 (00:08→09:52)
--- NOTE | 2020-04-30 01:15 | NUR ---
NEVER RECEIVED A CALL FOR ETA FROM [facility] , CALLED [facility] AND ETA IS GREATER THAN 2HRS AT THIS TIME.
--- NOTE | 2020-04-30 02:39 | NUR ---
RECEIVED CALL FROM CHUCHO AT [facility] THAT ETA IS 2 HRS FROM NOW.
[2020-04-30 04:30] VITALS: BP 119/59
[2020-04-30] MEDS: CLINDAMYCIN 600MG IV 50 ML IV SCH (06:00)
[2020-04-30] MEDS: TIZANIDINE HYDROCHLORIDE 4 MG PO SCH (06:00)
[2020-04-30] MEDS: SODIUM CHLOR 0.9% PF (SALINE LOCK) 10ML VIAL/SYR IV SCH (06:00)
--- NOTE | 2020-04-30 06:40 | NUR ---
RECEIVED CALL FROM [facility] ASKING ABOUT WHY PT NEEDS THE SERVICE AND THAT THEY WOULD GIVE PHONE NUMBERS FOR A [facility] SERVICE. FURTHER STATED THAT IF PT NEEDS ALS TRANSPORT THAT [facility] WILL NOT ACCEPT THE PT AND THAT [facility] WILL BE RESPONSIBLE AND BILLED FOR THE SERVICE. EXPLAINED THAT THIS RN IS NOT QUALIFIED TO TAKE ACCEPT RESPONSIBILITY FOR [facility] BEING BILLED AND THAT DAYSHIFT RN WILL CALL BACK IF SERVICES ARE STILL NEEDED BY [facility].
[2020-04-30] MEDS: InsuLIN REG 1unit/0.01ml Soln (100units/ml) SC SCH ×2 (06:47→11:30)
[2020-04-30] MEDS: LEVOTHYROXINE SODIUM 25 MCG TAB PO SCH (06:49)
[2020-04-30] MEDS: LEVOTHYROXINE SODIUM 100 MCG TAB PO SCH (06:49)
[2020-04-30 08:00] VITALS: BP 90/43
[2020-04-30 09:00] VITALS: BP 90/43
[2020-04-30] MEDS: cefTRIAXone 1GM/50ML D5W 50 ML IV SCH (09:00)
--- NOTE | 2020-04-30 09:18 | NUR ---
CALLED [facility] CONCERNING THE PATIENT'S TRANSPORT. AWAITING CALL BACK THEY FIGURE OUT WHAT THE HOLD UP WAS
[2020-04-30] MEDS: FUROSEMIDE 40 MG/4 ML VIAL IV SCH (09:52)
[2020-04-30] MEDS: ASPirin 81 mg TAB PO SCH (09:52)
[2020-04-30] MEDS: PANTOPRAZOLE 40 MG TAB PO SCH (09:53)
[2020-04-30] MEDS: POTASSIUM CHL 20 Meq TABLET PO SCH (09:53)
[2020-04-30] MEDS: NITROGLYCERIN 0.2MG/HR TOPICAL PATCH TD SCH (09:54)
[2020-04-30] MEDS: ENOXAPARIN SOD 40 MG/0.4 ML SYRINGE SC SCH (09:54)
[2020-04-30] MEDS: INSULIN LANTUS (GLARGINE) 1 /0.01ml (100units/ml) SC SCH (09:54)
[2020-04-30] MEDS ORDERED: CYANOCOBALAMIN (B-12) 1000 MCG/1 ML VIAL SUBCUT ONE (10:30)
--- NOTE | 2020-04-30 11:00 | NUR ---
SPOKE WITH [facility]. TRANSPORTATION CLEARED UP AND THE [facility].
[2020-04-30] MEDS: ACETAMINOPHEN 500 MG TAB PO PRN (11:57)
--- NOTE | 2020-04-30 13:30 | NUR ---
Discharge instructions given as ordered. All questions and concerns addressed. Patient verbalized understanding. Telemetry unit returned to ICU. Report given to Magdaleno at [facility]. Patient transported by [facility] with all personal belongings. No distress noted at time of departure.
== END 2020-04-30 13:30 | DRG 70 ==
LOC: EDBD 02:43 → ER 02:48 → TELE 02:49 → TELE-EAST 11:16 → TELE-CENTR 04-28 17:16
PROVIDERS: ADMIT Internal Medicine; ATTEND Internal Medicine
DX: G93.41 Metabolic encephalopathy (principal); I50.23 Acute on chronic systolic (congestive) heart failure; I11.0 Hypertensive heart disease with heart failure; E11.65 Type 2 diabetes mellitus with hyperglycemia; I48.91 Unspecified atrial fibrillation; Z20.828 Contact with and (suspected) exposure to other viral communicable diseases; F03.90 Unspecified dementia, unspecified severity, without behavioral disturbance, psychotic disturbance, mood disturbance, and anxiety; F32.9 Major depressive disorder, single episode, unspecified; F41.9 Anxiety disorder, unspecified; F20.9 Schizophrenia, unspecified; I25.10 Atherosclerotic heart disease of native coronary artery without angina pectoris; E11.51 Type 2 diabetes mellitus with diabetic peripheral angiopathy without gangrene; E66.9 Obesity, unspecified; E03.9 Hypothyroidism, unspecified; J44.9 Chronic obstructive pulmonary disease, unspecified; Z60.2 Problems related to living alone; I25.2 Old myocardial infarction; X31.XXXA Exposure to excessive natural cold, initial encounter; Z79.4 Long term (current) use of insulin; Z79.82 Long term (current) use of aspirin; Z79.899 Other long term (current) drug therapy; Z82.0 Family history of epilepsy and other diseases of the nervous system; Z82.49 Family history of ischemic heart disease and other diseases of the circulatory system; Z86.73 Personal history of transient ischemic attack (TIA), and cerebral infarction without residual deficits; Z90.49 Acquired absence of other specified parts of digestive tract; Z90.710 Acquired absence of both cervix and uterus; Z95.2 Presence of prosthetic heart valve; Z79.84 Long term (current) use of oral hypoglycemic drugs; Z88.2 Allergy status to sulfonamides; Z88.5 Allergy status to narcotic agent; Z88.8 Allergy status to other drugs, medicaments and biological substances; Z68.35 Body mass index [BMI] 35.0-35.9, adult
CPT/HCPCS: 36415; 70450; 71045; 80053; 80307; 81001; 82550; 82962; 83036; 83735; 83880; 84443; 84484; 85025; 85610; 85730; 86141; 87040; 87086; 87088; 87186; 93005; 96372; 97163; G0378; J1815

== ENCOUNTER 2020-05-01 23:06 | Emergency (ER) | payer MEDICARE, MEDICAID ==
[~2020-05-01] VITALS: Ht 167.6 cm; Wt 81.6 kg
[2020-05-01 23:23] VITALS: BP 124/56
== END 2020-05-02 07:38 | disposition left against medical advice (07) ==
LOC: ER 23:06 → EDBD 23:06 → ER 05-02 07:38
DX: R07.2 Precordial pain (principal); J44.9 Chronic obstructive pulmonary disease, unspecified; E11.9 Type 2 diabetes mellitus without complications; I11.0 Hypertensive heart disease with heart failure; I50.9 Heart failure, unspecified; I48.91 Unspecified atrial fibrillation; I25.10 Atherosclerotic heart disease of native coronary artery without angina pectoris; I25.2 Old myocardial infarction; Z87.440 Personal history of urinary (tract) infections; Z86.73 Personal history of transient ischemic attack (TIA), and cerebral infarction without residual deficits; Z77.22 Contact with and (suspected) exposure to environmental tobacco smoke (acute) (chronic); Z98.61 Coronary angioplasty status; Z88.8 Allergy status to other drugs, medicaments and biological substances; Z79.899 Other long term (current) drug therapy
CPT/HCPCS: 71045; 93005

== ENCOUNTER 2020-06-22 14:40 | Emergency (ER) | payer MEDICARE, MEDICAID ==
[~2020-06-22] VITALS: Ht 172.7 cm; Wt 90.7 kg
[2020-06-22] MEDS ORDERED: SODIUM CHLORIDE 0.9% 250 ML IV ONE (15:15)
[2020-06-22 15:17] VITALS: BP 118/56
[2020-06-23] MEDS ORDERED: InsuLIN REG 1unit/0.01ml Soln (100units/ml) ONE (12:08)
[2020-06-23] MEDS ORDERED: INSUINJ37 SC (13:02)
[2020-06-23] MEDS ORDERED: ATOR10TA52 PO (13:02)
[2020-06-23] MEDS ORDERED: LEVO112T4 PO (13:02)
== END 2020-06-22 19:20 | disposition home or self-care (01) ==
LOC: EDBD 14:40 → ER 14:40
DX: T67.5XXA Heat exhaustion, unspecified, initial encounter (principal); I48.91 Unspecified atrial fibrillation; I25.10 Atherosclerotic heart disease of native coronary artery without angina pectoris; I11.0 Hypertensive heart disease with heart failure; I50.9 Heart failure, unspecified; J44.9 Chronic obstructive pulmonary disease, unspecified; E11.9 Type 2 diabetes mellitus without complications; I25.2 Old myocardial infarction; E07.9 Disorder of thyroid, unspecified; Z86.73 Personal history of transient ischemic attack (TIA), and cerebral infarction without residual deficits; Z87.440 Personal history of urinary (tract) infections; X58.XXXA Exposure to other specified factors, initial encounter; Y93.89 Activity, other specified; Y92.89 Other specified places as the place of occurrence of the external cause; Y99.8 Other external cause status
CPT/HCPCS: 71045; 93005

== ENCOUNTER 2020-06-23 07:17 | Inpatient (IN) | payer BC, MEDICAID ==
[~2020-06-23] VITALS: Ht 165.1 cm; Wt 95.1 kg
[2020-06-23 09:17] LABS: Urine Bacteria MOD /hpf (None Seen); Urine Blood TRACE /uL (Negative); Urine Budding Yeast MODERATE /hpf (None Seen); Urine Specific Gravity 1.012 (1.001-1.035); Urine WBC 168 /hpf (0 - 5); Urine WBC Clumps PRESENT /hpf (None Seen)
[2020-06-23 09:33] LABS: Basophils # (auto) 0 10 ^3/uL (0-0.2); Basophils % (auto) 1.1 % (0.0-2.0); Eosinophils # (auto) 0.2 10 ^3/uL (0-0.8); Eosinophils % (auto) 5.3 % (0.0-7.0); Hematocrit 41.8 % (36.0-46.0); Hemoglobin 13.5 g/dL (12.2-16.2); Lymphocytes # (auto) 1.1 10 ^3/uL (0.4-5.4); Lymphocytes % (auto) 26.5 % (10.0-50.0); Mean Corpuscular Hemoglobin 30.4 pg (28.0-32.0); Mean Corpuscular Hgb Conc. 32.4 g/dL (32.0-36.0); Mean Corpuscular Volume 93.9 fL (80.0-100.0); Monocytes # (auto) 0.4 10 ^3/uL (0-1.3); Monocytes % (auto) 8.5 % (0.0-12.0); Neutrophils # (auto) 2.5 10 ^3/uL (1.6-8.6); Neutrophils % (auto) 58.6 % (37.0-80.0); Nucleated Red Blood Cells % 0.1 %; Platelet Count (auto) 176 10^3/uL (140-450); Red Blood Cells 4.45 10^6/uL (4.0-5.20); Red Cell Distribution Width 15.8 % (11.8-14.3); White Blood Cell 4.2 10^3/uL (4.4-10.8)
[2020-06-23 09:55] LABS: Albumin 3.5 g/dL (3.4-5.0); Calcium 9.1 mg/dL (8.5-10.1); Magnesium 2.3 mg/dL (1.6-2.6); Potassium 3.5 mmol/L (3.5-5.1)
[2020-06-23 10:06] LABS: BUN/Creatinine Ratio 15.5; Total Protein 7.6 g/dL (6.4-8.2)
[2020-06-23] MEDS ORDERED: FUROSEMIDE 20 MG/2 ML VIAL IV ONE (10:45)
[2020-06-23] MEDS ORDERED: cefTRIAXone 1GM/50ML D5W 50 ML IV ONE (10:45)
[2020-06-23] MEDS ORDERED: ENOXAPARIN SOD 100 MG/1 ML SYRINGE SC ONE (10:45)
[2020-06-23] MEDS ORDERED: ASPirin 81 mg TAB PO ONE (10:45)
[2020-06-23] MEDS ORDERED: DEXTROSE (50%) 50ML SYRG IV PRN (11:15)
[2020-06-23] MEDS ORDERED: ONDANSETRON HCL 4 MG/2 ML VIAL IV PRN (11:15)
[2020-06-23] MEDS ORDERED: NITROGLYCERIN 0.4 MG SL TAB SL PRN (11:15)
[2020-06-23] MEDS ORDERED: MORPHINE SULF INJ 2 MG/ML SYRINGE 1ML IV PRN (11:15)
[2020-06-23] MEDS ORDERED: SODIUM CHLORIDE 0.9% 1,000 ML IV ONE (11:15)
[2020-06-23] MEDS ORDERED: ALENDRONATE SODIUM 10 MG TAB PO SCH (11:15)
[2020-06-23] MEDS: ACCU-CHEK COMFORT CURVE STRIP VI SCH ×3 (11:30→22:04)
[2020-06-23] MEDS: ASPirin 81 mg TAB PO SCH (11:53)
[2020-06-23] MEDS: InsuLIN REG 1unit/0.01ml Soln (100units/ml) SC SCH ×3 (12:09→22:00)
--- NOTE | 2020-06-23 12:23 | NUR ---
Telemetry admit from ER SILVAELIZABETH admitted to Telemetry unit. Patient oriented to Rinku Smith, primary RN, unit, room, bed, and unit policies regarding patient care and visiting hours. Patient now on continuous telemetry monitoring, tele box #51 and telemetry reading on arrival to unit is paced-67bpm. Patient placed on bedside oxygen, weighed by bedscale and encouraged to call if they need something. All questions and concerns addressed, patient verbalized understanding.
[2020-06-23 12:30] VITALS: BP 129/71
[2020-06-23] MEDS ORDERED: INSUINJ37 SC (13:02)
[2020-06-23] MEDS ORDERED: ATOR10TA52 PO (13:02)
[2020-06-23] MEDS ORDERED: LEVO112T4 PO (13:02)
[2020-06-23] MEDS: levoFLOXacin 500MG 100 ML IV SCH (13:13)
[2020-06-23] MEDS: hydrALAZINE HCL 20 MG/ML VL IV SCH ×3 (13:48→22:00)
[2020-06-23] MEDS: GABAPENTIN 300 MG CAP PO SCH ×3 (13:51→22:00)
[2020-06-23 14:39] VITALS: BP 129/71
--- NOTE | 2020-06-23 15:10 | NUR ---
Endorsed MRSA swab and high VTE risk score to Rinku, primary RN. Rinku verbalized understanding.
--- NOTE | 2020-06-23 15:12 | NUR ---
RE: Next of kin Contacted Jackie, patient's granddaughter. Jackie aware that patient is a patient at [facility].
--- NOTE | 2020-06-23 15:15 | NUR ---
Found IV on the right wrist out, per patient she pulled it out because 'I don't want it and I don't want the IV put back on me! Can you ask the doctor I can take pills instead?'. Informed Dr. De La Fuente about this and that the patient is adamantly refusing IV reinsertion. Per Dr. De La Fuente this situation is noted but still prefers to have IV reinserted. Will try to convince patient for IV reinsertion later.
--- NOTE | 2020-06-23 15:30 | NUR ---
MRSA swab nares sent to lab for analysis.
[2020-06-23 16:00] VITALS: BP 131/85
--- NOTE | 2020-06-23 17:29 | NUR ---
Assessment Patient is a 84-year-old female. Assessment was completed with patient granddaughter Jackie who is also patient POA Ph:). Per Jackie prior to admission patient lived home alone and functioned independently. Patient caregiver is Samaria who is patient daughter . Per Jackie patient is on service with [facility]. Jackie informed me patient is on Psych medication. Jackie does not feel patient is safe to return home since she is needing more assistance. Per Jackie she would like patient to resume service with [facility] and would like hospice to find placement for patient. Per Jackie patient receives an amount of [id number] with [facility]. Informed Jackie I will inform bedside nurse and will fax orders to [facility]. . Informed Jackie she has the right to participate in all discharge planning. Jackie verbalized understanding and agreed to discharge plan. Informed PAT Dobbs patient will need a resumption order for [facility] hospice and placement. Informed PAT Dobbs patient will need a COVID test. Faxed clinical information to [facility]. Per Concepcion with [facility] ) they will resume service and will contact me once they have placement for patient. Received a follow up called from Concepcion advising me patient has been accepted to [facility] and once patient is ready to discharge they will arrange transportation for patient. COVID test results will need to be faxed to [facility] ). Addendum: 06/23/20 at 1743 by DEMI OLIVER Amended: Links added.
[2020-06-23] MEDS ORDERED: CLOPIDOGREL 300 MG TAB PO ONE (18:15)
--- NOTE | 2020-06-23 18:44 | NUR ---
Wound photos taken on the left lower extremity for documentation.
--- NOTE | 2020-06-23 19:00 | NUR ---
Patient still adamantly refused IV reinsertion. Gave reports to manufacturing shift supervisor RN.
--- NOTE | 2020-06-23 19:40 | NUR ---
Opening Shift Note Assumed care of patient, awake and alert. No S/S of distress/SOB or pain. Instructed on POC and to call for assist PRN. Educated patient on importance of having IV reinserted, but patient continues to refuse stating "I already said no! I'm not having any of you sticking me with needles anymore!" Will attempt to convince patient again later. Bed in lowest locked position, call light within reach, side rails up x2, fall precautions in place. Will continue to monitor for changes Q1hr and PRN.
[2020-06-23] MEDS ORDERED: LISINOPRIL 10 MG TAB PO SCH (22:00)
[2020-06-23] MEDS: ENOXAPARIN SOD 100 MG/1 ML SYRINGE SC SCH (22:00)
[2020-06-23 22:02] VITALS: BP 119/59
--- NOTE | 2020-06-23 22:05 | NUR ---
NOC meds Attempting to give night medication, but patient refused. Educated patient on importance of taking medications and risks of not taking medication. Patient upset and yelled "I said I don't want any of it!" Patient also continues to refuse IV reinsertion after educated multiple times.
--- NOTE | 2020-06-24 01:20 | NUR ---
Labs Multiple attempts have been made by environmental planning engineer to draw troponin. Patient educated but has refused lab draw.
[2020-06-24] MEDS: hydrALAZINE HCL 20 MG/ML VL IV SCH ×6 (01:50→22:00)
--- NOTE | 2020-06-24 02:30 | NUR ---
Rounds Upon assessment patient had taken tele monitor off. Monitor placed back on patient, instructed patient to keep tele monitor on.
--- NOTE | 2020-06-24 02:50 | NUR ---
Rounds Patient continues to take tele monitor off and is removing gown. Patient AOx3. Patient redressed and tele placed back on. Patient upset stating, "I'm just gonna take them back off again! And remove this catheter, I don't want it!" Instructed patient that catheter must stay in place. Charge nurse aware.
--- NOTE | 2020-06-24 03:05 | NUR ---
Rounds Patient removed gown and tele again. Charge nurse aware. Spoke with tele monitoring and evaluation advisor, tele sent back for safe keeping. Fall precautions remain in place. Addendum: 06/24/20 at 0326 by ODETTE FULLER OCA, RN Spoke with monitoring and evaluation advisor Sara, that monitor was sent.
[2020-06-24 05:17] VITALS: BP 145/81
[2020-06-24] MEDS: InsuLIN REG 1unit/0.01ml Soln (100units/ml) SC SCH ×4 (06:45→21:30)
[2020-06-24] MEDS: ACCU-CHEK COMFORT CURVE STRIP VI SCH ×4 (06:45→21:30)
[2020-06-24] MEDS: GABAPENTIN 300 MG CAP PO SCH ×3 (06:45→21:27)
[2020-06-24] MEDS: LEVOTHYROXINE SODIUM 112 MCG TAB PO SCH (06:45)
--- NOTE | 2020-06-24 06:55 | NUR ---
Closing note Patient allowed tele monitor to be placed back on. Patient continues to refuse IV reinsertion. Patient sitting up in bed watching TV, no distress noted. Will endorse care to day shift RN.
[2020-06-24] MEDS ORDERED: LEVOTHYROXINE SODIUM 50 MCG TAB PO SCH (07:00)
--- NOTE | 2020-06-24 07:20 | NUR ---
Opening Shift Note: Assumed care of patient, awake and alert. No S/S of distress/SOB or pain. Bed in lowest locked position, side rails up x 2, call light within reach. Patient instructed on POC and to call for assist PRN, will continue to monitor for changes Q1hr and PRN.
[2020-06-24] MEDS: metFORMIN HYDROCHLORIDE 500 MG TAB PO SCH (08:38)
--- NOTE | 2020-06-24 08:47 | NUR ---
PATIENT REFUSED IV START AT THIS TIME. PATIENT EDUCATED ON NEED FOR IV START, PATIENT CONTINUALLY REFUSING. WILL ATTEMPT AGAIN.
[2020-06-24 09:00] VITALS: BP 113/55
[2020-06-24] MEDS: levoFLOXacin 500MG 100 ML IV SCH (09:38)
[2020-06-24] MEDS: CLOPIDOGREL BISULFATE 75 MG TAB PO SCH (10:00)
[2020-06-24] MEDS ORDERED: cefTRIAXone 1GM/50ML D5W 50 ML IV SCH (10:00)
[2020-06-24] MEDS: ENOXAPARIN SOD 100 MG/1 ML SYRINGE SC SCH ×2 (10:00→21:30)
[2020-06-24 10:20] LABS: Basophils # (auto) 0.1 10 ^3/uL (0-0.2); Basophils % (auto) 1.2 % (0.0-2.0); Eosinophils # (auto) 0.2 10 ^3/uL (0-0.8); Eosinophils % (auto) 3.7 % (0.0-7.0); Hematocrit 39.2 % (36.0-46.0); Hemoglobin 12.7 g/dL (12.2-16.2); Lymphocytes % (auto) 21.2 % (10.0-50.0); Mean Corpuscular Hgb Conc. 32.4 g/dL (32.0-36.0); Mean Corpuscular Volume 92.6 fL (80.0-100.0); Monocytes # (auto) 0.4 10 ^3/uL (0-1.3); Monocytes % (auto) 8.9 % (0.0-12.0); Neutrophils # (auto) 3.1 10 ^3/uL (1.6-8.6); Platelet Count (auto) 183 10^3/uL (140-450); Red Blood Cells 4.24 10^6/uL (4.0-5.20); Red Cell Distribution Width 15.5 % (11.8-14.3); White Blood Cell 4.7 10^3/uL (4.4-10.8)
[2020-06-24 10:54] LABS: Albumin 3.2 g/dL (3.4-5.0); Potassium 4.3 mmol/L (3.5-5.1)
[2020-06-24 11:01] LABS: BUN/Creatinine Ratio 16.4; Total Protein 6.8 g/dL (6.4-8.2)
--- NOTE | 2020-06-24 11:01 | NUR ---
PATIENT REFUSING TELE AT THIS TIME. PATIENT EDUCATED ON NEED FOR TELE AT THIS TIME. PATIENT CONTINUALLY REFUSED.
--- NOTE | 2020-06-24 12:34 | NUR ---
PATIENT PULLED OUT WARD CATHETER AT THIS TIME. PATIENT STATES NO PAIN. NO NOTED TRAMA TO THE SITE. ATTEMPTED TO ASK PATIENT, PER PATIENT "I JUST DIDN'T WANT IT ANYMORE." WILL CONTINUE TO MONITOR.
[2020-06-24 13:00] VITALS: BP 124/56
[2020-06-24 17:00] VITALS: BP 130/67
--- NOTE | 2020-06-24 17:47 | NUR ---
PATIENT CONTINUALLY REFUSING TELE BOX AND IV PLACEMENT AT THIS TIME. PATIENT EDUCATED ON NEED FOR IV AND TELE, PATIENT REFUSED. WILL CONTINUE TO MONITOR.
--- NOTE | 2020-06-24 18:47 | NUR ---
CLOSING NOTE: Patient resting in bed. No S/S of distress at this time. Bed alarm activate for patient safety. Care endorsed to NOC RN.
[2020-06-24 22:00] VITALS: BP 130/67
[2020-06-25] MEDS: hydrALAZINE HCL 20 MG/ML VL IV SCH ×6 (02:00→21:22)
--- NOTE | 2020-06-25 04:59 | NUR ---
Patient refused to put back tele monitor on. TELE BOX SENT TO ICU/HEALTH AND SAFETY CONSULTANT.
--- NOTE | 2020-06-25 05:01 | NUR ---
Informed patient she needs an IV, patient refused.
[2020-06-25] MEDS: GABAPENTIN 300 MG CAP PO SCH ×4 (05:57→21:22)
[2020-06-25] MEDS: LEVOTHYROXINE SODIUM 112 MCG TAB PO SCH ×2 (05:57→06:03)
[2020-06-25] MEDS: InsuLIN REG 1unit/0.01ml Soln (100units/ml) SC SCH ×4 (05:57→21:23)
[2020-06-25] MEDS: ACCU-CHEK COMFORT CURVE STRIP VI SCH ×4 (05:58→21:24)
--- NOTE | 2020-06-25 06:34 | NUR ---
Patient refused medications for 6 am. Explained what they are for, patient not receptive.
--- NOTE | 2020-06-25 07:40 | NUR ---
Opening shift note Assumed care of patient from NOC RN. Patient is AOx4 no s/s of distress or SOB noted. Bed is in lowest locked position, side rails up x2, call light is within reach and safety officer at bed side. Updated patient on plan of care and patient verbalized understanding but reinforcement is needed. Will continue to monitor.
[2020-06-25 08:44] VITALS: BP 118/53
[2020-06-25] MEDS: ASPirin 81 mg TAB PO SCH (09:17)
[2020-06-25] MEDS: metFORMIN HYDROCHLORIDE 500 MG TAB PO SCH (09:17)
[2020-06-25] MEDS: CLOPIDOGREL BISULFATE 75 MG TAB PO SCH (09:17)
[2020-06-25] MEDS: ENOXAPARIN SOD 100 MG/1 ML SYRINGE SC SCH ×2 (09:18→21:23)
[2020-06-25] MEDS: levoFLOXacin 500MG 100 ML IV SCH (09:18)
--- NOTE | 2020-06-25 09:20 | NUR ---
unable to give IV medications Patient does not have IV access, patient is refusing IV line placement. Educated patient on the importance of IV access, patient verbalized understanding but is still stating refusal. Patient stated "I will take my pills but not IV, I do not want an IV." Will notify MD and will continue to monitor.
[2020-06-25 12:19] LABS: Basophils # (auto) 0 10 ^3/uL (0-0.2); Basophils % (auto) 1.2 % (0.0-2.0); Eosinophils # (auto) 0.2 10 ^3/uL (0-0.8); Eosinophils % (auto) 4.6 % (0.0-7.0); Hematocrit 39.6 % (36.0-46.0); Hemoglobin 12.9 g/dL (12.2-16.2); Lymphocytes # (auto) 1.2 10 ^3/uL (0.4-5.4); Lymphocytes % (auto) 28.8 % (10.0-50.0); Mean Corpuscular Hemoglobin 30.1 pg (28.0-32.0); Mean Corpuscular Hgb Conc. 32.5 g/dL (32.0-36.0); Mean Corpuscular Volume 92.4 fL (80.0-100.0); Monocytes # (auto) 0.3 10 ^3/uL (0-1.3); Monocytes % (auto) 8.1 % (0.0-12.0); Neutrophils # (auto) 2.4 10 ^3/uL (1.6-8.6); Neutrophils % (auto) 57.3 % (37.0-80.0); Nucleated Red Blood Cells % 0.1 %; Platelet Count (auto) 191 10^3/uL (140-450); Red Blood Cells 4.28 10^6/uL (4.0-5.20); Red Cell Distribution Width 15.4 % (11.8-14.3); White Blood Cell 4.2 10^3/uL (4.4-10.8)
[2020-06-25 12:44] VITALS: BP 120/60
[2020-06-25 12:49] LABS: Albumin 3.3 g/dL (3.4-5.0); BUN/Creatinine Ratio 14.1; Calcium 8.9 mg/dL (8.5-10.1); Total Protein 7.2 g/dL (6.4-8.2)
--- NOTE | 2020-06-25 12:53 | NUR ---
EEG- ELECTROENCEPHALOGRAM COMPLETED ON 06/25/2020 @ 11:28.
--- NOTE | 2020-06-25 13:50 | NUR ---
Notified of IV refusal. Will inform patient of need of IV placement and will attempt to initiate IV.
--- NOTE | 2020-06-25 14:00 | NUR ---
Patient refusing IV Educated patient on importance of IV, informed patient that MD is requiring IV. Patient verbalized understanding but is still stating refusal. Patient stated "I know it's important but I don't want it. I will think about it and let you know." Will continue to monitor q1hr and PRN.
--- NOTE | 2020-06-25 17:45 | NUR ---
Attempted IV Patient agreeing to IV start. Unabel to get IV access. Will notify MD and charge nurse.
--- NOTE | 2020-06-25 19:05 | NUR ---
End of shift note Endorsed care to noc RN. No s/s of distress or SOB noted.
[2020-06-25 22:00] VITALS: BP 104/48
[2020-06-26] MEDS: hydrALAZINE HCL 20 MG/ML VL IV SCH ×3 (02:00→09:03)
[2020-06-26 05:00] VITALS: BP 122/58
[2020-06-26 05:51] LABS: Basophils # (auto) 0.1 10 ^3/uL (0-0.2); Basophils % (auto) 1.4 % (0.0-2.0); Eosinophils # (auto) 0.2 10 ^3/uL (0-0.8); Eosinophils % (auto) 4.2 % (0.0-7.0); Hematocrit 37.2 % (36.0-46.0); Hemoglobin 12.3 g/dL (12.2-16.2); Lymphocytes # (auto) 1.4 10 ^3/uL (0.4-5.4); Lymphocytes % (auto) 29.1 % (10.0-50.0); Mean Corpuscular Hemoglobin 30.3 pg (28.0-32.0); Mean Corpuscular Volume 91.8 fL (80.0-100.0); Monocytes # (auto) 0.6 10 ^3/uL (0-1.3); Monocytes % (auto) 12.2 % (0.0-12.0); Neutrophils # (auto) 2.6 10 ^3/uL (1.6-8.6); Neutrophils % (auto) 53.1 % (37.0-80.0); Nucleated Red Blood Cells % 0.1 %; Platelet Count (auto) 179 10^3/uL (140-450); Red Blood Cells 4.05 10^6/uL (4.0-5.20); Red Cell Distribution Width 15.3 % (11.8-14.3); White Blood Cell 4.8 10^3/uL (4.4-10.8)
[2020-06-26 06:16] LABS: Calcium 8.3 mg/dL (8.5-10.1); Potassium 3.7 mmol/L (3.5-5.1)
[2020-06-26 06:20] LABS: BUN/Creatinine Ratio 13.6; Bilirubin, Total 0.9 mg/dL (0.2-1.0); Total Protein 6.5 g/dL (6.4-8.2)
[2020-06-26] MEDS: GABAPENTIN 300 MG CAP PO SCH (06:48)
[2020-06-26] MEDS: LEVOTHYROXINE SODIUM 112 MCG TAB PO SCH (06:49)
[2020-06-26] MEDS: InsuLIN REG 1unit/0.01ml Soln (100units/ml) SC SCH ×2 (06:50→12:18)
[2020-06-26] MEDS: ACCU-CHEK COMFORT CURVE STRIP VI SCH ×2 (06:50→11:56)
--- NOTE | 2020-06-26 07:30 | NUR ---
Opening Shift Note Assumed care of patient, awake and alert to self. No S/S of distress/SOB or pain. Instructed on POC and to call for assistance as needed, will continue to monitor for changes Q1hr and PRN.
[2020-06-26 09:00] VITALS: BP 105/52
[2020-06-26] MEDS: CLOPIDOGREL BISULFATE 75 MG TAB PO SCH (09:02)
[2020-06-26] MEDS: metFORMIN HYDROCHLORIDE 500 MG TAB PO SCH (09:02)
[2020-06-26] MEDS: ASPirin 81 mg TAB PO SCH (09:03)
[2020-06-26] MEDS: ENOXAPARIN SOD 100 MG/1 ML SYRINGE SC SCH (09:03)
[2020-06-26] MEDS: levoFLOXacin 500MG 100 ML IV SCH (09:03)
--- NOTE | 2020-06-26 11:00 | NUR ---
D/C planning Placed follow up called to Concepcion with [facility] advising her patient will be discharging home. Transportation will bee arranged with [facility] at 13:30. Informed RN Amelia.
[2020-06-26 12:27] VITALS: BP 105/52
[2020-06-26 13:00] VITALS: BP 126/50
--- NOTE | 2020-06-26 13:00 | NUR ---
Spoke with family Spoke with patients granddaughter/caregiver regarding patient being transferred to [facility] to room number 302 bed 2. Family verbalizes understanding at this time. Will continue care.
--- NOTE | 2020-06-26 13:40 | NUR ---
Discharge instructions given as ordered. Encourage to follow up with [facility] as instructed. All questions and concerns addressed. Patient verbalized understanding. D/C instructions given to granddaughter Jackie over the phone. Patient has no IV line in place at time of discharge. Patient had been refusing telemetry monitoring so no monitor in place at this time. Patient taken to vehicle via wheelchair with all personal belongings, accompanied by transport staff. No distress noted at time of departure.
--- NOTE | 2020-06-26 13:50 | NUR ---
Report given over phone to Anel STEWART at [facility].
== END 2020-06-26 13:30 | disposition hospice, inpatient (51) | DRG 280 ==
LOC: ER 07:17 → TELE 07:18 → TELE-WESTW 12:27
PROVIDERS: ADMIT Internal Medicine; ATTEND Internal Medicine
DX: I21.4 Non-ST elevation (NSTEMI) myocardial infarction (principal); G93.41 Metabolic encephalopathy; N39.0 Urinary tract infection, site not specified; L03.115 Cellulitis of right lower limb; L03.116 Cellulitis of left lower limb; I50.22 Chronic systolic (congestive) heart failure; F20.9 Schizophrenia, unspecified; E11.40 Type 2 diabetes mellitus with diabetic neuropathy, unspecified; F32.9 Major depressive disorder, single episode, unspecified; I48.91 Unspecified atrial fibrillation; I11.0 Hypertensive heart disease with heart failure; I25.10 Atherosclerotic heart disease of native coronary artery without angina pectoris; J44.9 Chronic obstructive pulmonary disease, unspecified; E11.65 Type 2 diabetes mellitus with hyperglycemia; Z90.49 Acquired absence of other specified parts of digestive tract; I25.2 Old myocardial infarction; Z79.82 Long term (current) use of aspirin; Z86.73 Personal history of transient ischemic attack (TIA), and cerebral infarction without residual deficits; Z95.2 Presence of prosthetic heart valve; Z79.899 Other long term (current) drug therapy; Z81.8 Family history of other mental and behavioral disorders; Z82.0 Family history of epilepsy and other diseases of the nervous system; Z82.49 Family history of ischemic heart disease and other diseases of the circulatory system; Z83.3 Family history of diabetes mellitus; Z90.710 Acquired absence of both cervix and uterus; Z88.2 Allergy status to sulfonamides; Z88.5 Allergy status to narcotic agent; Z03.818 Encounter for observation for suspected exposure to other biological agents ruled out
CPT/HCPCS: 36415; 70450; 71045; 80053; 80061; 81001; 82962; 83036; 83735; 83880; 84443; 84484; 85025; 87081; 87426; 93005; 93306; 93886; 95819; 97110; 97116; 97530; G0378; J1815; J1956